=== PATIENT | female | born 1990 | race Caucasian/White ===

== ENCOUNTER → 2022-07-20 | Outpatient (CLI) | payer MEDICAID, SELFPAY ==
[2022-07-20 08:19] LABS: Absolute Lymphocyte Count 2.53 X10^3/uL (0.83-4.51); Absolute Neutrophil Count 4.1 X10^3/uL (2.0-7.7); Basophil% 1.3 % (0-1); Hematocrit 38.7 % (37-47); Hemoglobin 13.1 g/dL (12.0-15.0); Lymphocyte # 2.53 X10^3/ul (0.83-4.51); Lymphocyte % 33.6 % (19-41); Mean Corp Hgb Conc 33.9 g/dL (32-36); Mean Corpuscular Hgb 32.3 pg (27.0-32.0); Mean Corpuscular Volume 95.3 fL (81-99); Mean Platelet Vol. 10.1 fl (6.2-12.0); Monocyte# 0.49 X10^3/uL; Monocyte% 6.5 % (0-10); NRBC Flagged by Analyzer 0 % (0-5); Neutrophil % 54.3 % (47-70); Platelet Count 257 K/mm3 (150-450); RBC Distribution Width CV 13.3 % (11.6-14.6); Red Blood Count 4.06 M/mm3 (4.2-5.4); White Blood Count 7.5 K/mm3 (4.4-11.0)
[2022-07-20 09:44] LABS: ALB/GLOB Ratio 0.9 RATIO (0.9-2.4); AST(SGOT) 61 U/L (15-37); Alanine Aminotransfer ALT/SGPT 115 U/L (13-56); Albumin, Serum 2.9 g/dL (3.2-5.0); Alkaline Phosphatase 155 U/L (45-117); Anion Gap 4 (5-15); BUN 7 mg/dL (7-18); BUN/Creat Ratio 9.2 RATIO (10-20); Calcium,Total 8.4 mg/dL (8.5-10.1); Chloride 105 mmol/L (98-107); Creatinine, Serum 0.76 mg/dL (0.55-1.02); EST Glomerular Filtration Rate 92 mL/min (>60); Est Glom Filt Rate - Afr Amer 111 mL/min (>60); Free T3 < 0.5 pg/mL (2.18-3.98); Globulin 3.3 g/dL (2.2-4.2); Glucose 79 mg/dL (74-106); Iron 128 ug/dL (50-170); Protein, Total 6.2 g/dL (6.4-8.2); Sodium Level 139 mmol/L (136-145); T4 Free Direct 0.12 ng/dL (0.76-1.46)
[2022-07-22 10:32] LABS: Vitamin B12 > 2000 pg/mL (211-911); Vitamin D,25 Hydroxy 17.4 ng/mL
== END | disposition home or self-care (01) ==
PROVIDERS: PCP Family Medicine; Referring Provider Family Medicine; Visit Provider Family Medicine
DX: E06.3 Autoimmune thyroiditis (principal); R53.83 Other fatigue; E55.9 Vitamin D deficiency, unspecified
CPT/HCPCS: 36415; 80053; 82306; 82607; 83540; 84439; 84443; 84481; 85025

== ENCOUNTER → 2022-08-01 | Outpatient (CLI) | payer MEDICAID, SELFPAY ==
[2022-08-01 12:45] LABS: T3 Total - Triiodothyronine 0.11 ng/mL (0.6-1.81)
[2022-08-01 12:49] LABS: ALB/GLOB Ratio 0.8 RATIO (0.9-2.4); AST(SGOT) 89 U/L (15-37); Alanine Aminotransfer ALT/SGPT 158 U/L (13-56); Albumin, Serum 2.5 g/dL (3.2-5.0); Alkaline Phosphatase 146 U/L (45-117); Anion Gap 5 (5-15); BUN 9 mg/dL (7-18); BUN/Creat Ratio 12.9 RATIO (10-20); Calcium,Total 7.6 mg/dL (8.5-10.1); Chloride 109 mmol/L (98-107); EST Glomerular Filtration Rate 102 mL/min (>60); Est Glom Filt Rate - Afr Amer 123 mL/min (>60); Free T3 0.6 pg/mL (2.18-3.98); Globulin 3.1 g/dL (2.2-4.2); Glucose 85 mg/dL (74-106); Lipase 14 U/L (73-393); Potassium 3.8 mmol/L (3.5-5.1); Prealbumin 7.9 mg/dL (20.0-40.0); Protein, Total 5.6 g/dL (6.4-8.2); Sodium Level 141 mmol/L (136-145); T4 Free Direct 0.13 ng/dL (0.76-1.46); T4 Total, Thyroxin 0.9 ug/dL (4.8-13.9)
[2022-08-02 16:09] LABS: Endomysial Antibody IgA Positive (Negative)
[2022-08-02 18:25] LABS: ANTINUCLEAR ANTIBODIES DIRECT Negative (Negative)
[2022-08-02 18:34] LABS: Immunoglobulin A 309 mg/dL (87-352); t-Transglutaminase IgA >100 U/mL (0-3)
== END | disposition home or self-care (01) ==
LOC: BFHLAB 10:58
PROVIDERS: PCP Family Medicine; Visit Provider Family Medicine
DX: R19.7 Diarrhea, unspecified (principal); E06.3 Autoimmune thyroiditis; R21 Rash and other nonspecific skin eruption; R53.83 Other fatigue
CPT/HCPCS: 36415; 80053; 82533; 82784; 83516; 83690; 84134; 84436; 84439; 84480; 84481; 86038; 86225; 86235; 86255

== ENCOUNTER → 2022-09-09 | Outpatient (CLI) | payer MEDICAID, SELFPAY ==
--- NOTE | 2022-09-09 10:23 | US_ITS ---
STUDY: ABDOMINAL ULTRASOUND - RIGHT UPPER QUADRANT REASON FOR VISIT: Female, 32 years old ABDOMINAL BLOATING/CHRONIC DIARRHEA MALNUTRITION TECHNIQUE: Ultrasound evaluation of the right upper quadrant was performed with real-time and static jaimes-scale imaging. TECHNICAL QUALITY: Adequate. COMPARISON: None. FINDINGS: Liver: The liver measures 21.4 cm. Mild increased echogenicity of the liver parenchyma due to fatty infiltration. The bile ducts are within normal limits. There is hepatic color flow. The direction of portal flow is hepatopetal. 1.9 x 2.2 x 1.6 cm hepatic cyst. Gallbladder: Postsurgical absence. Common Bile Duct (C.B.D.): The common bile duct measures 2 mm. Pancreas: Normal size of the head, body and tail of the pancreas. There is normal echogenicity of the pancreas. There is no demonstrated pancreatic mass or cyst. . Pancreatic duct is not dilated. Right Kidney: Normal size of the right kidney. The right kidney measures 10.4 x 5.2 x 4.1 cm. Normal renal cortex. The right cortex measures 0.8 cm. There is no demonstrated renal mass or cyst. There is no right hydronephrosis. US/Abdomen Limited IMPRESSION: 1. Mild hepatomegaly with hepatic steatosis. 2. 1.9 x 2.2 x 1.6 cm hepatic cyst. Electronically Signed: En Obrien MD at 11:05 EST ,
== END | disposition home or self-care (01) ==
LOC: US 10:21
PROVIDERS: PCP Family Medicine; Visit Provider Family Medicine
DX: R14.0 Abdominal distension (gaseous) (principal); K52.9 Noninfective gastroenteritis and colitis, unspecified; Z85.07 Personal history of malignant neoplasm of pancreas
CPT/HCPCS: 76705

== ENCOUNTER → 2022-09-10 | Outpatient (CLI) | payer MEDICAID, SELFPAY ==
[2022-09-10 15:12] LABS: Absolute Lymphocyte Count 1.63 X10^3/uL (0.83-4.51); Absolute Neutrophil Count 6.9 X10^3/uL (2.0-7.7); Eosinophil# 0.75 X10^3/uL; Eosinophils% 7.4 % (0-5); Hematocrit 37.1 % (37-47); Hemoglobin 11.7 g/dL (12.0-15.0); Lymphocyte # 1.63 X10^3/ul (0.83-4.51); Mean Corp Hgb Conc 31.5 g/dL (32-36); Mean Corpuscular Hgb 32.4 pg (27.0-32.0); Mean Corpuscular Volume 102.8 fL (81-99); Monocyte# 0.73 X10^3/uL; Monocyte% 7.2 % (0-10); NRBC Flagged by Analyzer 0 % (0-5); Neutrophil # 6.89 X10^3/uL (2.7-7.7); Neutrophil % 67.6 % (47-70); Platelet Count 252 K/mm3 (150-450); RBC Distribution Width SD 60.3 fl (35.1-43.9); Red Blood Count 3.61 M/mm3 (4.2-5.4); White Blood Count 10.2 K/mm3 (4.4-11.0)
[2022-09-10 15:29] LABS: T3 Total - Triiodothyronine 0.66 ng/mL (0.6-1.81)
[2022-09-10 16:48] LABS: Free T3 1.5 pg/mL (2.18-3.98); Lipase 31 U/L (73-393); T4 Total, Thyroxin 3.7 ug/dL (4.8-13.9)
[2022-09-12 21:58] LABS: Carbohydrate AG 19-9 64 U/mL (0-35)
== END | disposition home or self-care (01) ==
LOC: BFHLAB 11:57
PROVIDERS: PCP Family Medicine; Visit Provider Family Medicine
DX: E06.3 Autoimmune thyroiditis (principal); E46 Unspecified protein-calorie malnutrition; D64.9 Anemia, unspecified; Z85.07 Personal history of malignant neoplasm of pancreas
CPT/HCPCS: 36415; 83690; 84436; 84439; 84443; 84480; 84481; 85025; 86301

== ENCOUNTER → 2022-10-02 | Outpatient (CLI) | payer MEDICAID, SELFPAY ==
[2022-10-02 12:34] LABS: Absolute Lymphocyte Count 1.58 X10^3/uL (0.83-4.51); Absolute Neutrophil Count 2.6 X10^3/uL (2.0-7.7); Basophil# 0.05 X10^3/uL; Eosinophil# 0.55 X10^3/uL; Eosinophils% 10.5 % (0-5); Hematocrit 38.3 % (37-47); Hemoglobin 12.4 g/dL (12.0-15.0); Lymphocyte # 1.58 X10^3/ul (0.83-4.51); Lymphocyte % 30.2 % (19-41); Mean Corp Hgb Conc 32.4 g/dL (32-36); Mean Corpuscular Hgb 32.9 pg (27.0-32.0); Mean Corpuscular Volume 101.6 fL (81-99); Mean Platelet Vol. 10.1 fl (6.2-12.0); Monocyte# 0.45 X10^3/uL; Monocyte% 8.6 % (0-10); NRBC Flagged by Analyzer 0 % (0-5); Neutrophil # 2.59 X10^3/uL (2.7-7.7); Neutrophil % 49.3 % (47-70); Platelet Count 227 K/mm3 (150-450); RBC Distribution Width CV 13.9 % (11.6-14.6); RBC Distribution Width SD 52.4 fl (35.1-43.9); Red Blood Count 3.77 M/mm3 (4.2-5.4); T3 Total - Triiodothyronine 1.12 ng/mL (0.6-1.81); White Blood Count 5.2 K/mm3 (4.4-11.0)
[2022-10-02 12:42] LABS: ALB/GLOB Ratio 1.1 RATIO (0.9-2.4); AST(SGOT) 73 U/L (15-37); Alanine Aminotransfer ALT/SGPT 140 U/L (13-56); Albumin, Serum 3.7 g/dL (3.2-5.0); Alkaline Phosphatase 129 U/L (45-117); Anion Gap 5 (5-15); BUN 10 mg/dL (7-18); Calcium,Total 8.7 mg/dL (8.5-10.1); Chloride 107 mmol/L (98-107); EST Glomerular Filtration Rate 150 mL/min (>60); Est Glom Filt Rate - Afr Amer 182 mL/min (>60); Free T3 2.6 pg/mL (2.18-3.98); Globulin 3.5 g/dL (2.2-4.2); Glucose 81 mg/dL (74-106); Potassium 3.8 mmol/L (3.5-5.1); Protein, Total 7.2 g/dL (6.4-8.2); Sodium Level 141 mmol/L (136-145); T4 Free Direct 0.43 ng/dL (0.76-1.46); T4 Total, Thyroxin 3.8 ug/dL (4.8-13.9)
== END | disposition home or self-care (01) ==
LOC: BFHLAB 08:43
PROVIDERS: PCP Family Medicine; Visit Provider Family Medicine
DX: E06.3 Autoimmune thyroiditis (principal); E46 Unspecified protein-calorie malnutrition; D64.9 Anemia, unspecified
CPT/HCPCS: 36415; 80053; 84436; 84439; 84443; 84480; 84481; 85025

== ENCOUNTER → 2022-11-21 | Outpatient (CLI) | payer MEDICAID, SELFPAY ==
[2022-11-21 12:34] LABS: Absolute Lymphocyte Count 1.57 X10^3/uL (0.83-4.51); Absolute Neutrophil Count 2.7 X10^3/uL (2.0-7.7); Basophil# 0.04 X10^3/uL; Basophil% 0.8 % (0-1); Eosinophils% 9.5 % (0-5); Hematocrit 38.9 % (37-47); Hemoglobin 12.8 g/dL (12.0-15.0); Lymphocyte # 1.57 X10^3/ul (0.83-4.51); Lymphocyte % 29.7 % (19-41); Mean Corp Hgb Conc 32.9 g/dL (32-36); Mean Corpuscular Hgb 31.5 pg (27.0-32.0); Mean Corpuscular Volume 95.8 fL (81-99); Mean Platelet Vol. 9.8 fl (6.2-12.0); Monocyte# 0.48 X10^3/uL; Monocyte% 9.1 % (0-10); NRBC Flagged by Analyzer 0 % (0-5); Neutrophil # 2.68 X10^3/uL (2.7-7.7); Neutrophil % 50.7 % (47-70); Platelet Count 186 K/mm3 (150-450); RBC Distribution Width CV 11.7 % (11.6-14.6); RBC Distribution Width SD 41.1 fl (35.1-43.9); Red Blood Count 4.06 M/mm3 (4.2-5.4); White Blood Count 5.3 K/mm3 (4.4-11.0)
[2022-11-21 13:24] LABS: ALB/GLOB Ratio 1.3 RATIO (0.9-2.4); AST(SGOT) 60 U/L (15-37); Alanine Aminotransfer ALT/SGPT 142 U/L (13-56); Albumin, Serum 3.8 g/dL (3.2-5.0); Alkaline Phosphatase 90 U/L (45-117); Anion Gap 6 (5-15); BUN 11 mg/dL (7-18); BUN/Creat Ratio 24.8 RATIO (10-20); Calcium,Total 9.1 mg/dL (8.5-10.1); Chloride 107 mmol/L (98-107); Creatinine, Serum 0.44 mg/dL (0.55-1.02); EST Glomerular Filtration Rate 172 mL/min (>60); Est Glom Filt Rate - Afr Amer 208 mL/min (>60); Free T3 4.7 pg/mL (2.18-3.98); Glucose 94 mg/dL (74-106); Potassium 4.1 mmol/L (3.5-5.1); Protein, Total 6.8 g/dL (6.4-8.2); Sodium Level 141 mmol/L (136-145); T4 Free Direct 0.69 ng/dL (0.76-1.46); Thyroid Stim Hormone (TSH) 1.25 uIU/mL (0.358-3.74)
== END | disposition home or self-care (01) ==
LOC: BFHLAB 09:28
PROVIDERS: PCP Family Medicine; Referring Provider Family Medicine; Visit Provider Family Medicine
DX: E06.3 Autoimmune thyroiditis (principal); E46 Unspecified protein-calorie malnutrition
CPT/HCPCS: 36415; 80053; 84439; 84443; 84481; 85025

== ENCOUNTER → 2023-01-13 | Outpatient (CLI) | payer MEDICAID, SELFPAY ==
[2023-01-13 13:27] LABS: AST(SGOT) 37 U/L (15-37); Alanine Aminotransfer ALT/SGPT 84 U/L (13-56); Albumin, Serum 3.9 g/dL (3.2-5.0); Alkaline Phosphatase 88 U/L (45-117); Amylase 26 U/L (25-115); Bilirubin, Direct 0.11 mg/dL (0.00-0.30); Free T3 3.1 pg/mL (2.18-3.98); Globulin 3.5 g/dL (2.2-4.2); Lipase < 10 U/L (13-75); Protein, Total 7.4 g/dL (6.4-8.2); T4 Free Direct 0.57 ng/dL (0.76-1.46); Thyroid Stim Hormone (TSH) 4.15 uIU/mL (0.358-3.74)
[2023-01-14 04:07] LABS: Carbohydrate AG 19-9 15 U/mL (0-35)
== END | disposition home or self-care (01) ==
LOC: BFHLAB 09:06
PROVIDERS: PCP Family Medicine; Referring Provider Family Medicine; Visit Provider Family Medicine
DX: E06.3 Autoimmune thyroiditis (principal); R74.8 Abnormal levels of other serum enzymes; K86.89 Other specified diseases of pancreas; Z85.07 Personal history of malignant neoplasm of pancreas
CPT/HCPCS: 36415; 80076; 82150; 83690; 84439; 84443; 84481; 86301

== ENCOUNTER → 2023-05-16 | Outpatient (CLI) | payer MEDICAID, SELFPAY ==
[2023-05-16 15:45] LABS: AST(SGOT) 27 U/L (15-37); Alanine Aminotransfer ALT/SGPT 75 U/L (13-56); Albumin, Serum 3.8 g/dL (3.2-5.0); Alkaline Phosphatase 75 U/L (45-117); Bilirubin, Direct 0.14 mg/dL (0.00-0.30); Free T3 4.1 pg/mL (2.18-3.98); Globulin 3.3 g/dL (2.2-4.2); Protein, Total 7.1 g/dL (6.4-8.2); T4 Free Direct 0.88 ng/dL (0.76-1.46); Thyroid Stim Hormone (TSH) 0.03 uIU/mL (0.358-3.74)
[2023-05-19 14:08] LABS: Endomysial Antibody IgA Positive (Negative); Immunoglobulin A 120 mg/dL (87-352); t-Transglutaminase IgA 8 U/mL (0-3)
== END | disposition home or self-care (01) ==
LOC: BFHLAB 13:20
PROVIDERS: PCP Family Medicine; Referring Provider Family Medicine; Visit Provider Family Medicine
DX: K90.0 Celiac disease (principal); E06.3 Autoimmune thyroiditis
CPT/HCPCS: 36415; 80076; 82784; 83516; 84439; 84443; 84481; 86255

== ENCOUNTER → 2023-09-24 | Outpatient (CLI) | payer MEDICAID, SELFPAY ==
--- OUTSIDE RECORDS SUMMARY | 2023-09-24 06:02 | XMS RPT_ITS | CCD ---
Author Name Unknown Address [address] [place] [address] Organization [facility] Care Team Providers Care Piping Blocker Name Role Phone Clemencia Mcclain DO Primary Care Provider NONE, NONE Primary Care Unavailable MARY DIAZ, Federico Wheeler Attending Unavailab BELLE Nevarez DO Consulting Unavailable ADRIAN DIAZ, PUMA Wheeler Admitting Unavailable DIAMOND DIAZ, JOS V Consulting Unavailable MARY DIAZ, Federico Wheeler Consulting Unavailab eugenio MURPHY MD, TIKI Walter Consulting Unava iljason JAMES [id number], KIMI Wheeler Consulting Unavailable PUMA CAMPBELL MD Consulting Unavailable NONE, NONE Consulting Unavailable NONE, NONE Primary Care Unavailable Johny Clemencia BUI Primary Care Provider DAVID PAGE Referring Unavailable JOHNY, CLEMENCIA A Primary Care Unavailable KAYLEE, DAVID Referring Unavailable JOHNY, CLEMENCIA A Primary Care Unavailable KAYLEE, DAVID Attending Unavailable JOHNY, CLEMENCIA A Primary Care Unavailable JOHNY, CLEMENCIA A Primary Care Unavailable DAVID PAGE Attending Unavailable JOHNY, CLEMENCIA A Primary Care Unavailable KAYLEE, DAVID Referring Unavailable JOHNY, CLEMENCIA A Primary Care Unavailable KAYLEE, DAVID Referring Unavailable JOHNY, CLEMENCIA A Primary Care Unavailable SADJESI, DAVID Referring Unavailable JOHNY, CLEMENCIA A Primary Care Unavailable NONE, NONE Primary Care Unavailable MARY DIAZ, Federico Wheeler Attending Unavailab BELLE Nevarez DO Consulting Unavailable ADRIAN DIAZ, PUMA Wheeler Admitting Unavailable DIAMOND DIAZ, JOS V Consulting Unavailable MARY DIAZ, Federico Wheeler Consulting Unavailab eugenio MURPHY MD, TIKI Walter Consulting Unava ilable ERIKA BUI, KIMI Wheeler Consulting Gabrielavai soila CAMPBELL MD, PUMA Wheeler Consulting Unavailable NONE, NONE Consulting Unavailable JOHNY D~[id number], JOHNY KHANNA Admitting Unavailable HAYWARD D.O., DANII Caballero Consulting Unavaila ble JOHNY D~[id number], JOHNY KHANNA Primary Car e Unavailable JOHNY D~[id number], JOHNY KHANNA Attending Unavailable HAYWARD D.O., DANII Caballero Consulting Unavaila ble JOHNY D, CLEMENCIA Consulting Unavailable JOHNY D, CLEMENCIA Consulting Unavailable JOHNY D~[id number], JOHNY KHANNA Primary Car e Unavailable HOSUER DO~[id number], HOUSER VARUN S Admitting Unavailable HOUSER DO~[id number], MIK BOND S Attending Unavailable HOUSER DO, VARUN S Consulting Unavailable HOUSER DO, VARUN S Consulting Unavailable GREGORIO DIAZ, DR PRITESH Braxton Consulting Unavail jason PERKINS MD, DR PRITESH Braxton Consulting Unavail able JOHNY D, CLEMENCIA Consulting Unavailable JOHNY D, CLEMENCIA Consulting Unavailable JOHNY D, CLEMENCIA Consulting Unavailable JOHNY D~[id number], JOHNY KHANNA Attending Unavailable JOHNY D~[id number], JOHNY KHANNA Admitting Unavailable JOHNY D~[id number], JOHNY KHANNA Primary Car e Unavailable JOHNY D, CLEMENCIA Consulting Unavailable JOHNY D, CLEMENCIA Consulting Unavailable JOHNY D~[id number], JOHNY KHANNA Attending Unavailable JOHNY D~[id number], JOHNY KHANNA Admitting Unavailable JOHNY D~[id number], JOHNY KHANNA Primary Car e Unavailable JOHNY D, CLEMENCIA Consulting Unavailable Allergies Allergy Classification Reported Allergen(s) Allergy Type Date of Onset Reaction(s) Facility (2 sources) Vancomycin Drug Allergy 09-14-2022 [facility] Repository (2 sources) Pork/Porcine Product Derivatives; Translations: [Pork/Porcine Product Derivatives] Food allergy (disorder) [facility] Medications Completed/Discontinued Medications Medication Drug Class(es) Dates Sig (Normalized) Sig (Original) amylase 497011 unt / lipase 32461 unt / protease [id number] unt delayed release oral capsule (7 sources) Start: 01-06-2023 End: 02-12-2024 take 2 capsules by mouth three times daily at mealtime [id number] lase (CREON) 36,000-114,000- 180,000 unit delayed release capsule Take 2 capsules by mouth three times daily with meals. 540 capsule 3 01/06/2023 02/12/2023 Discontinued Problems Active Problems Problem Classification Problem Date Documented Date Episodic/Chronic Cancer of pancreas (13 sources) Malignant tumor of head of pancreas; Translations: [Malignant neoplasm of head of pancreas] Onset: 04-16-2022 04-16-2022 Chronic Esophageal disorders (5 sources) Gastroesophageal reflux disease; Translations: [Gastro-esophageal reflux disease without esophagitis] Onset: 01-19-2023 Chronic Nonmalignant breast conditions (3 sources) Mastodynia; Translations: [MASTODYNIA] Onset: 08-19-2023 Episodic Other liver diseases (1 source) ALT (SGPT) level raised; Translations: [Elevated alanine aminotransferase (ALT) level] 05-16-2023 Episodic Other liver diseases (2 sources) Abnormal levels of other serum enzymes; Translations: [Elevated liver enzymes] Onset: 01-19-2023 Episodic Other nutritional; endocrine; and metabolic disorders (2 sources) Enzyme level - finding; 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, unspecified] Chronic Residual codes; unclassified (1 source) Acquired partial absence of pancreas; Translations: [ACQUIRED PARTIAL ABSENCE PANCREAS] Onset: 09-24-2022 Chronic Thyroid disorders (4 sources) Autoimmune thyroiditis; Translations: [Hypothyroidism, unspecified] Onset: 09-24-2022 Chronic Unclassified (1 source) CONTACT W/AND (SUSP) EXPOS COVID-19; Translations: [CONTACT W/AND (SUSP) EXPOS COVID-19] Onset: 09-24-2022 Past or Other Problems Problem Classification Problem Date Documented Da te Episodic/Chronic Bacterial infection; unspecified site (1 source) Other specified bacterial agents as the cause of diseases classified elsewhere; Translations: [OTH SPEC BACTERIAL DZ CLASS ELSW] Onset: 09-24-2022 Episodic Cancer of other GI organs; peritoneum (1 source) Personal history of malignant neoplasm of pancreas; Translations: [PERSONAL HX MALIG NEOPLASM PANCREAS] Onset: 05-08-2023 Episodic Complications of surgical procedures or medical care (1 source) Bloodstream infection due to central venous catheter, initial encounter; Translations: [BLOODSTREAM INF D/T CVC INITIAL] Onset: 09-24-2022 Episodic E Codes: Adverse effects of medical care (1 source) Other medical procedures as the cause of abnormal reaction of the patient, or of later complication, without mention of misadventure at the time of the procedure; Translations: [OTH MED PROC ABNORM RXN/LTR COMP] Onset: 09-24-2022 Episodic Fever of unknown origin (2 sources) Fever, unspecified; Translations: [FEVER UNSPECIFIED] Onset: 09-14-2022 Episodic Other disorders of stomach and duodenum (5 sources) Nonulcer dyspepsia; Translations: [Functional dyspepsia] Onset: 01-19-2023 Episodic Other liver diseases (8 sources) Elevated liver enzymes level; Translations: [Abnormal levels of other serum enzymes] Onset: 01-19-2023 Episodic Other nervous system disorders (2 sources) Other disturbances of skin sensation; Translations: [OTHER DISTURBANCES SKIN SENSATION] Onset: 05-05-2023 Episodic Other nutritional; endocrine; and metabolic disorders (1 source) Adult failure to thrive; Translations: [ADULT FAILURE TO THRIVE] Onset: 09-24-2022 Episodic Other screening for suspected conditions (not mental disorders or infectious disease) (3 sources) Protein level - finding; Translations: [Other specified abnormal findings of blood chemistry] Onset: 10-02-2022 Episodic Pleurisy; pneumothorax; pulmonary collapse (1 source) Pleurisy; Translations: [PLEURISY] Onset: 05-08-2023 Episodic Residual codes; unclassified (1 source) Body mass index (BMI) 21.0-21.9, adult; Translations: [BODY MASS INDEX BMI 21.0-21.9 ADULT] Onset: 09-24-2022 Episodic Results Test Name Value Interpretation Reference Range Facil ity Vital Signs Date Time Vital Sign Value Performing Clinician Jeanmarie velazquez 07-08-2022 12:52-0500 Body weight 54.88 kg David Page MD Work Phone: [facility] 07-08-2022 12:52-0500 Diastolic blood pressure 71 mm[Hg] David Page MD Work Phone: [facility] 07-08-2022 12:52-0500 Heart rate 67 /min David Page MD Work Phone: [facility] 07-08-2022 12:52-0500 Respiratory rate 16 /min David Page MD Work Phone: [facility] 07-08-2022 12:52-0500 Systolic blood pressure 105 mm[Hg] David Page MD Work Phone: [facility] Encounters Encounter Date Encounter Type Care Provider Facility Start: 08-19-2023 End: 08-20-2023 ambulatory JOHNY Teran~[id number] Facility:[facility] Start: 08-01-2023 End: 08-02-2023 ambulatory CLEMENCIA Teran Facility:[facility] Start: 05-16-2023 End: 05-17-2023 ambulatory DAVID KAYLEE Facility:[facility] Start: 05-16-2023 Telephone encounter David braxton MD Work Phone: Gastroenterology Procedures Date Procedure Procedure Detail Performing Clinician Start: 02-11-2023 Ct abdomen & pelvis w/contrast material David Page MD Work Phone: Laboratory test resu lt abnormal High serum transferrin saturation David Page MD Work Phone: Plan of Treatment Date Care Activity Detail Author Start: 09-01-2023 End: 11-01-2023 Comprehensive metabolic 2000 panel - Serum or Plasma COMP METABOLIC PANEL Lab Routine Elevated alanine aminotransferase (ALT) level Expected: 09/01/2023, Expires: 11/01/2023 [facility] Work Phone: Payers Date Payer Category Payer Private Health Insurance [id number] 2019 Medicaid MEDICAID [facility] MEDICAID [id number] 2019-Present [phone] [address] [place] [address] Medicaid [id number] 2019 Medicaid [id number] 1988 Unknown [id number] 1988 Unknown [id number] 1988 Unknown [id number] 1988 Unknown [id number] 1988 Unknown [id number] 1988 Unknown [id number] 1959 Medicaid [id number] Social History Date Type Detail Facility Tobacco smoking stat [facility] Tobacco smoking consumption unknown [facility] Start: 1990 Sex Assigned At Not on file [facility] Start: 03-24-2022 End: 07-08-2022 Exposure to SARS-CoV-2 (event) Not sure [facility] Start: 01-06-2023 History of Social function [facility] Start: 01-06-2023 Area Deprivation Index [facility] National Score (1-10 0), lower number is lower risk 55 [facility] Clinical Notes 04-04-2022 to 05-21-2023 Telephone Encounter - Michelle Rodas RN - 05/21/2023 11:18 AM EDTTelephone Encounter - David Page MD - 05/19/2023 1:34 PM EDTTelephone Encounter - Michelle Rodas RN - 05/19/2023 1:10 PM EDT Note Date & Type Note Facility 05-21-2023 Miscellaneous Notes Spoke with pt. Advised to establish care within the [facility] system with oncologist to determine how often scans should be done. Pt states understanding and agrees with plan. Pt will get blood work in September Gastroenterologists do not typically make recommendations regarding surveillance scans for pancreatic cancer following surgery. I am reluctant to do so being that all of her care was provided in [place] and I have limited access to her prior treatment plan. She should establish care with an oncologist in the [facility] system for future surveillance. However, I am more than happy continue to manage her elevated LFTs and acid-related symptoms. Spoke with pt. Advised of results and will get repeat blood work Dr Page Pt is asking if she still needs to have CT pancreas every 6 months? Michelle 02-11-2023 CT IMPRESSION: Status post Whipple procedure with unremarkable appearance of the remaining pancreatic body and tail. No evidence for metastatic disease. Stable simple attenuating cyst in the left hepatic lobe. 01-06-2023 ASSESSMENT/PLAN: Vinny Taveras is a 32 year old female with a history of pancreatic cancer (s/p pylorus-preserving Whipple with cholecystectomy on 07/10/21 in [place], in remission), anemia, hypothyroidism, cholecystectomy and migraine headaches who presents to the GI clinic for follow up of GERD, non-ulcer dyspepsia and elevated liver enzymes. 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 She is maintaining her weight. Latest MRI/MRCP shows no evidence of recurrent disease in the abdomen/pelv. Post-op diarrhea resolved on Creon --Surveillance CT abd/pelv next month --Continue low fat diet --Continue Creon 2 caps with meals TID --Patient wishes to continue following up in [place] for her oncologic treatment. 4) GERD 5) Non-ulcer dyspepsia Symptoms are largely controlled on omeprazole 40 mg/day, which she takes 4-5 days/week. H. Pylori infection was ruled out. EGD (12/2021) was reportedly unremarkable. --Continue omeprazole 40 mg/day. Avoid taking within 3 hours of thyroid medication --Healthy anti-reflux lifestyle habits reinforced. 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 Aminotransferases and AlkPhos have improved mildly since Oct (AP 124 > 87, AST 64 > 34, ALT 106 > 80). CT scan from 11/2021 is suggestive of hepatic steatosis. No significant alcohol use history. Etiology includes NAFLD and TPN-related liver injury (last used TPN in 08/2022). Chronic liver disease workup was unremarkable. --Repeat CMP in 3 months --Liver biopsy may be warranted if liver enzymes do not continue to improve, contingent on these test results Michelle, please call Vinny and let her know that her liver enzymes, although not back to normal, continue to look better. I've ordered repeat blood work for her to get done in Sep to check these. documented in this encounter [facility] 02-12-2023 Miscellaneous Notes Orders signed. Thank you Call placed to patient, discussed CT scan. She is aware. Recall already scheduled for notification Pt is also asking if her medication for Creon and Prilosec can be changed to [facility] due to challenges getting to the pharamcy. I changed orders to correct pharmacy, please review and sign. Zulema Loaiza RN Zulema, can you call Vinny and let her know that her CT scan looks good? There is no evidence of recurrent pancreatic cancer. Everything appears stable. documented in this encounter [facility] 02-11-2023 Note HNO ID: [id number] Author: RT Mehran(R) Service: ? Author Type: [employer] Type: Progress Notes Filed: 02/11/2023 1:24 PM Note Text: Radiology Service Progress Note DATE OF SERVICE: February 11, 2023 TIME: 1:23 PM PATIENT IDENTITY VERIFICATION COMPLETED USING TWO (2) STANDARD IDENTIFIERS: Name and Date of confirmed by patient verbally. FALL SCREENING: Has the patient had 2 falls in the last year or 1 fall with injury or currently using an Ambulatory Assistive Device (Walker, Cane, Wheelchair, Crutches, etc.)? No PATIENT GENDER DATA: Female. status: : No status: NO. PATIENT RELEVANT IMPLANT DATA REVIEWED: Yes ALLERGIES: Reviewed and unchanged CONTRAST ALLERGY: NO. EXAM: CT -CONTRAST INDUCED NEPHROPATHY RISK FACTORS: Patient age > 60 years CREATININE: Creatinine Date Value Ref Range Status 12/30/2022 0.55 (L) 0.58 - 0.96 mg/dL Final 10/02/2022 0.49 (L) 0.58 - 0.96 mg/dL Final 04/03/2022 0.77 0.58 - 0.96 mg/dL Final Estimated Glomerular Filtration Rate Date Value Ref Range Status 12/30/2022 124 >=60 mL/min/1.73m? Final Comment: Estimated Glomerular Filtration Rate (eGFR) is calculated using the 2020 CKD-EPI creatinine equation. This equation utilizes serum creatinine, sex, and age as parameters. The creatinine assay has traceable calibration to isotope dilution-mass spectrometry. Refer to KDIGO guidelines for clinical interpretation. In patients with unstable renal function, e.g. those with acute kidney injury, the eGFR may not accurately reflect actual GFR. P.O.C.T. RESULTS: POC done: Yes, See Lab Tab February 11, 2023 TREATMENT: N/A PERIPHERAL IV DATA: Ambulatory: A peripheral IV was started in the Left antecubital site with a Angio cath: 22 gauge. RADIOLOGY DEPARTMENT: CT; Exam(s) Completed: Abdomen/Pelvis SIGNATURE: RT Aracelis(R) PATIENT NAME: Vinny Taveras DATE: February 11, 2023 TIME: 1:23 PM [facility] 02-11-2023 History of Presen t illness Narrative Radiology Service Progress Note DATE OF SERVICE: February 11, 2023 TIME: 1:23 PM PATIENT IDENTITY VERIFICATION COMPLETED USING TWO (2) STANDARD IDENTIFIERS: Name and Date of confirmed by patient verbally. FALL SCREENING: Has the patient had 2 falls in the last year or 1 fall with injury or currently using an Ambulatory Assistive Device (Walker, Cane, Wheelchair, Crutches, etc.)? No PATIENT GENDER DATA: Female. status: : No status: NO. PATIENT RELEVANT IMPLANT DATA REVIEWED: Yes ALLERGIES: Reviewed and unchanged CONTRAST ALLERGY: NO. EXAM: CT -CONTRAST INDUCED NEPHROPATHY RISK FACTORS: Patient age > 60 years CREATININE: Creatinine Date Value Ref Range Status 12/30/2022 0.55 (L) 0.58 - 0.96 mg/dL Final 10/02/2022 0.49 (L) 0.58 - 0.96 mg/dL Final 04/03/2022 0.77 0.58 - 0.96 mg/dL Final Estimated Glomerular Filtration Rate Date Value Ref Range Status 12/30/2022 124 >=60 mL/min/1.73m Final Comment: Estimated Glomerular Filtration Rate (eGFR) is calculated using the 2020 CKD-EPI creatinine equation. This equation utilizes serum creatinine, sex, and age as parameters. The creatinine assay has traceable calibration to isotope dilution-mass spectrometry. Refer to KDIGO guidelines for clinical interpretation. In patients with unstable renal function, e.g. those with acute kidney injury, the eGFR may not accurately reflect actual GFR. P.O.C.T. RESULTS: POC done: Yes, See Lab Tab February 11, 2023 TREATMENT: N/A PERIPHERAL IV DATA: Ambulatory: A peripheral IV was started in the Left antecubital site with a Angio cath: 22 gauge. RADIOLOGY DEPARTMENT: CT; Exam(s) Completed: Abdomen/Pelvis SIGNATURE: RT Aracelis(R) PATIENT NAME: Vinny Taveras DATE: February 11, 2023 TIME: 1:23 PM documented in this encounter [facility] 01-09-2023 Miscellaneous Notes Closed, historical. Patients sister calling to ask that we contact Vinny at [phone]. Thank you Outside records and referral received from Dr. Mcclain. As much as possible registered given incomplete waldemar from referring office. Medical records were faxed into [employer] scanned documents. Attempted to call [phone] as listed on waldemar provided from Dr. Mcclain. Female answering phone said that was her home# but she was not there and asked me to call [phone]. Tried to call secondary number but it was a message stating please enter your mailbox number . Unable to reach patient. Desk will attempt once more. Patient needs to call [facility] at [phone] and complete full registration before she can be scheduled. documented in this encounter [facility] 01-01-2023 Miscellaneous Notes Pt has f/u on 01/06/23 Will discuss at visit, ok per Dr. Kaylee Loaiza RN Zulema, can you call Vinny and let her know that her liver enzymes have improved compared to her last lab check 3 months ago? There is still some mild inflammation in the liver. I'd like to repeat these labs in 3 months to ensure that this improvement continues. She has a follow up appointment with me on 01/06/23. documented in this encounter [facility] 10-21-2022 Miscellaneous Notes Spoke with patient regarding no CT needed. She is aware to get blood work done. Follow up as planned Zulema Loaiza RN No need for repeat CT since this was just done. Since resumption of TPN may have affected her liver enzymes, I favor waiting for 3 months off TPN before rechecking. Labs ordered for collection on or shortly after January 13 Spoke with patient, she updated me on events since last office visit. She states in August and September she was required to go back on her TPN. She was not feeling well at all. She had thyroid levels out of control and was low on protein. She stopped the TPN 2 weeks ago. She is feeling much better. She was able to start on Creon, started with /4 and now is up to 6 per day. This is making her feel much better. She has CT f/u in October, she is asking if she needs this still. She was admitted to hospital on 09/14/22 for line infection, had CT done. She is schedule for follow up in December. CT from care everywhere 09/14/22: - Mild interstitial thickenings and geographic groundglass attenuations at the lung bases possible atelectasis or mild edema. Trace bilateral pleural effusions. No basilar consolidation. - The liver is diffusely hypoattenuating and enlarged at 23 cm in greatest longitudinal diameter. Simple cyst at the left lobe near the dome measures 1.6 x 2.0 cm. Small central pneumobilia is present. The gallbladder surgically absent with cholecystectomy clips. Whipple's procedure with partial pancreatectomy postsurgical changes present. Dilatation of the pancreatic duct at the body and tail measures 6 mm possible sequela of chronic pancreatitis. - The spleen and bilateral adrenal glands are unremarkable. - The stomach and small bowel are unremarkable. The appendix is visualized without inflammatory change. The colon is unremarkable. Zulema Loaiza RN Zulema, can you call Vinny and review her lab results? Testing for hemochromatosis is normal. However, her liver enzymes are persistently elevated. These are stable compared to her last lab draw 6 months ago. No longer felt to be due to TPN since she hasn't required this for months. Can you find out whether she is still receiving chemo? If not, when was her last dose? If so, will she be stopping this soon without plans to restart? She may need a liver biopsy depending on the status of her chemo help determine a cause for this persistent inflammation since her lab workup was unremarkable. documented in this encounter [facility] 07-16-2022 Miscellaneous Notes Spoke with patient regarding results. She expressed good understanding. She is aware to get labs after the new year. Encouraged to call with any questions or concerns. Zulema Loaiza RN Zulema, can you call Vinny to let her know that her urine copper study was normal. This means that her liver enzymes are NOT elevated because of a metabolic disease associated with copper transport. She should get lab work done on or shortly after Sep 01 as we discussed in clinic. OK to relay all medical information to her sister / emergency contact if unable to reach her at her listed number on file. documented in this encounter [facility] 07-08-2022 Instructions David Page MD - 07/08/2022 1:21 PM EST Thank you for seeing me in clinic today! I'm glad that you're feeling better! As we discussed, my recommendations are as follows: Continue omeprazole 40 mg every day. Take this 30-60 minutes before dinner on an empty stomach. Please try to adhere to the following lifestyle habits that can help reduce acid reflux symptoms: Avoid trigger foods , or food/drink that tend to precipitate acid reflux symptoms. Common offenders include alcohol, fatty/spicy foods, red sauces (pizza, ketchup, hot sauce), chocolate, caffeinated beverages such as coffee and tea, carbonated beverages and peppermint. Elevate the head of your bed to 45 degrees (or 6 inches above) with a foam wedge or 2-3 pillows, especially if symptoms occur at night or early in the morning Remain upright for at least 3 hours after meals Avoid late night snacking Avoid tight-fitting clothes/garments Make efforts to reduce overall stress and anxiety, if able Avoid/minimize medications like ibuprofen (Motrin, Advil), naproxen (Aleve) and meloxicam (Mobic) since these can worsen acid reflux. Tylenol is a reasonable alternative if needed for pain control purely from an acid reflux standpoint. 3. Please schedule a CT scan of the abdomen to assess your response to pancreatic cancer treatment no earlier than October 2022. 4. Get blood work done shortly after Sep 01 to check your liver enzymes. I will follow up on your pending urine test. Please make a follow up visit with me in 6 months or sooner as needed for any new/worsening gastrointestinal symptoms If you have any questions about the above treatment plan, please do not hesitate to send me a [employer] message or call the [facility] at [phone] to route me a message. documented in this encounter [facility] 07-08-2022 History and physical note FOLLOW UP OFFICE VISIT REASONS FOR FOLLOW UP: GERD Heartburn Abnormal LFTs PATIENT SUMMARY: Vinny Taveras is a 32 year old female with a history of pancreatic cancer (s/p pylorus-preserving Whipple with cholecystectomy on 07/10/21 in [place], currently receiving immunotherapy), anemia and migraine headaches who presents to the GI clinic for follow up. She was last seen in the GI clinic on 04/03/22 for a 4-month history of intermittent heartburn, nausea and generalized weakness. Gastric wall thickening was seen on CT. Follow up EGD in 12/2021 in [place] was normal per patient. Report is not available for review. Abnormal liver enzymes (ALT 206, AST 142) were found on blood work in 10/2021 and slightly improved on repeat check 2 months later (ALT 126, AST 74). Her oncologist was concerned about malnutrition and she was receiving TPN shipped from [place] that she infused at home through a central line once weekly. Follow up MRI/MRCP of the pancreas showed no evidence of recurrent pancreatic cancer. Creon was started to address possible malnutrition from [facility] since she was experiencing some mild diarrhea / steatorrhea. H. Pylori IgG was normal. Omeprazole 40 mg/day was started for suspected GERD and non-ulcer dyspepsia. Chronic liver disease workup was only notable for a low ceruloplasmin. INTERVAL HISTORY: She is feeling much better. Nausea and heartburn are >90% improved since starting omeprazole. She only experiences mild breakthrough after eating fatty foods. She was unable to tolerate Creon due to GI upset, but is no longer having problems with diarrhea. Stools are formed. She lost 3 lbs since her last visit 3 months ago. Appetite is good. She eats 3 meals/day with snacks. She is no longer requiring TPN. Last TPN infusion was 6 weeks ago without plans to continue. She is still traveling to [place] for periodic immunotherapy. She submitted her 24-hr urine copper today to rule out Arias's disease. Past Clinical Work-up: MRCP: 05/02/22: Patient is status post Whipple procedure. The remaining body and tail of the pancreas are without focal enlargement or mass. Pancreatic duct is dilated at 0.7 cm. No pathologic enhancement. The site of anastomosis with the bowel appears grossly intact. A 2 cm cyst is seen within the dome of the liver. No additional or suspicious hepatic lesion The gallbladder is surgically absent. Common duct is normal in caliber. Component Latest Ref Rng & Units 04/03/2022 H. pylori IgG, Qualitative Negative Negative Component Latest Ref Rng & Units 04/03/2022 Iron 41 - 186 ug/dL 94 TIBC 232 - 386 ug/dL 200 (L) Transferrin Saturation 15.0 - 57.0 % 47.0 Alpha 1 Antitryp Serum 90 - 200 mg/dL 136 Alpha 1 Antitryp Phenotype M1M1 Hep B Core Ab, Total Negative Negative Hep B Surface Ag Negative Negative Hep C Antibody IA Negative Negative Hep B Surface Ab (Immunity) >=12.00 mIU/mL <8.00 (L) Ferritin 14.7 - 205.1 ng/mL 1,649.0 (H) VIJAY Negative Negative Smooth Muscle Ab Panel Negative Negative Mitochondrial Ab Panel Negative Negative Ceruloplasmin 16 - 45 mg/dL 9 (L) Hepatitis A IgG Negative Negative Component Latest Ref Rng & Units 04/03/2022 Protein, Total 6.3 - 8.0 g/dL 5.9 (L) Albumin 3.9 - 4.9 g/dL 3.7 (L) Calcium 8.5 - 10.2 mg/dL 8.2 (L) Bilirubin, Total 0.2 - 1.3 mg/dL 0.4 Alkaline Phosphatase 34 - 123 U/L 173 (H) AST 13 - 35 U/L 71 (H) ALT 7 - 38 U/L 101 (H) Glucose 74 - 99 mg/dL 101 (H) BUN 7 - 21 mg/dL 5 (L) Creatinine 0.58 - 0.96 mg/dL 0.77 Sodium 136 - 144 mmol/L 139 Potassium 3.7 - 5.1 mmol/L 3.9 Chloride 97 - 105 mmol/L 104 CO2 22 - 30 mmol/L 28 Anion Gap 9 - 18 mmol/L 7 (L) eGFR >=60 mL/min/1.73m 105 ALLERGIES No Known Allergies PAST MEDICAL HISTORY Diagnosis Date Anemia in other chronic diseases classified elsewhere Malignant neoplasm of other parts of pancreas (HCC) Signet Ring Cell Carcinoma PAST SURGICAL HISTORY Procedure Laterality Date PANCREATECTOMY 2020 REMOVAL GALLBLADDER 2020 No family history on file. Current Outpatient Medications Medication Sig thyroid (ARMOUR THYROID) 120 mg tablet Take 120 mg by mouth once daily. omeprazole (PRILOSEC) 40 mg capsule Take 1 capsule by mouth once daily. Take 30-60 minutes before dinner on an empty stomach. No current facility-administered medications for this visit. I have confirmed and edited, if necessary, the PFSH obtained by others. REVIEW OF SYSTEMS CONSTITUTIONAL: Negative for unintentional weight loss, malaise or fevers HEENT: Negative for frequent/significant headaches, changes in hearing/vision, nose bleeds or other nasal problems RESPIRATORY: Negative for cough, hemoptysis, wheezing or dyspnea CARDIOVASCULAR: Negative for chest pain, palpitations, syncope or lightheadedness GI: See HPI : Negative for dysuria, polyuria, incontinence or hematuria MUSCULOSKELETAL: Negative for arthralgia or myalgia INTEGUMENTARY/SKIN: Negative for rash or skin lesion HEMATOLOGY/LYMPHOLOGY: Negative for prolonged bleeding, easy bruising or swollen nodes ENDOCRINE: Negative for cold/heat intolerance, polydipsia or goiter NEURO: Negative for encephalopathy, tremor or gait abnormality PSYCH: Negative for new changes in mood or affect PHYSICAL EXAM: BP 105/71 (BP Site: Left Arm, BP Position: Sitting, BP Cuff Size: Regular Adult) Pulse 67 Resp 16 Wt 54.9 kg (121 lb) Gen: Comfortable female in NAD Head: Normocephalic, atraumatic Skin: No jaundice, rashes or skin lesions Eyes: Sclera anicteric, conjunctiva pink, no KF rings Neck: No mass or goiter Heart: No sternal heave Lungs: Non-labored breathing Abd: Soft and non-distended Ext: No lower extremity edema, clubbing or cyanosis Neuro: Alert and oriented, no tremor or gross focal motor deficits Psych: Congruent mood and affect, appropriate insight and judgement ASSESSMENT/PLAN: Vinny Taveras is a 32 year old female with a history of pancreatic cancer (s/p pylorus-preserving Whipple with cholecystectomy on 07/10/21 in [place], currently receiving immunotherapy), anemia and migraine headaches who presents to the GI clinic for follow up. 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 No longer requiring TPN. Maintaining her weight. Latest MRI/MRCP shows no evidence of recurrent disease in the abdomen/pelv. Post-op diarrhea has resolved. She could not tolerate Creon. --Surveillance CT abd/pelv in 4 months --Low fat diet --Patient wishes to continue following up in [place] at least until she completes treatment 4) GERD 5) Non-ulcer dyspepsia Heartburn, dyspepsia and nausea are >90% improved on omeprazole 40 mg/day. She underwent EGD in 12/2021 in [place] for gastric wall thickening seen during on her CT 1 month prior. This exam was normal per patient, but report is not available for review. H. Pylori IgG was negative. --Continue omeprazole 40 mg/day. Take before dinner to avoid absorption problems with levothyroxine --Healthy anti-reflux lifestyle habits reinforced. 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 These persistent but were improved on blood work 2 months later (ALT 126, AST 74, AP 138). CT scan from 11/2021 is suggestive of hepatic steatosis. Etiology includes NAFLD, TPN-related injury other metabolic/genetic liver diseases (Arias's, HH). Ceruloplasmin was low. Ferritin and transferrin saturation were high. --Repeat CMP with HFE screen in 2 months --24-hr urine copper --Liver biopsy may be warranted, contingent on these test results Follow up with me in 6 months David Page MD Associate Staff, Department of Gastroenterology and Hepatology [facility] [place] documented in this encounter [facility] 05-29-2022 Miscellaneous Notes Spoke with patient, she states she was having issues with her phone. She was informed of her results from BW and MRI. She was pleased to hear results. She was updated about doing a 24 hour urine specimen. She will try to do this week. She will be going to [place] for 2 weeks next week, she may need to do the urine when she returns. Zulema Loaiza RN Attempt to contact patient again, call cannot be completed. Sister has same number listed. Zulema Loaiza RN I tried to contact patient, attempt x2, phone number listed in encounter and on contact info rings quick busy signal. I will try again. Zulema Loaiza RN Attempted to reach patient again, but call would not go through at this phone number. Attempted to reach patient at her listed number on file, but reached a busy signal on 3 occasions. Will try back again Her MRI is reassuring and shows no evidence of recurrent pancreatic cancer. Her disease appears to be in remission. No suspicious liver abnormalities to explain her elevated liver enzymes. Recent labs show low ceruloplasmin. A 24-hour urine copper study is recommended to rule out Arias's disease. She will have to crab picker this urine collection container at a [facility] lab and ask the lab for instructions about storage, pickup/drop off times. The urine jug may need to be refrigerated. The remainder of her chronic liver disease workup is unremarkable. She should receive the hepatitis B vaccine series since she is not immune to this virus. If her urine copper study is normal, I recommend repeating her liver enzymes and if persistently elevated, going forward with a liver biopsy. Please see message. MRI results: Patient is status post Whipple procedure. The remaining body and tail of the pancreas are without focal enlargement or mass. Pancreatic duct is dilated at 0.7 cm. No pathologic enhancement. The site of anastomosis with the bowel appears grossly intact. The kidneys appear normal. No focal enlargement or mass. A 2 cm cyst is seen within the dome of the liver. No additional or suspicious hepatic lesion The gallbladder is surgically absent. Common duct is normal in caliber. Zulema Loaiza RN Patient identified by name and date. Patient calling for results of her MRI done on 05/02/22. She can be reached at [phone]. KATHIA Roca documented in this encounter [facility] 04-04-2022 Miscellaneous Notes Agree with this. Thank you Spoke with pharmacy Clarified orders. Dr. Page: they wanted specific timing of snack, I advised to use 3 snacks per day. She will take 2 with meals TID and 1 with snack TID, total of 9 per day. They will fill 30 day supply with 5 refills. Zulema Loaiza RN Please review PSR message and advise pharmacy. Angélica Denis MA Good Afternoon, Philly from [facility] in [facility] was calling in regarding the Creon Prescription. They need clarification on the Directions and dosage. Please call [phone] Thank You documented in this encounter [facility] Diagnosis Elevated liver enzymes- Primary Other nonspecific abnormal serum enzyme levels Malignant neoplasm of head of pancreas (HCC) Malignant neoplasm of head of pancreas Elevated ferritin Other abnormal blood chemistry High serum transferrin saturation Low ceruloplasmin level Disorders of copper metabolism Gastroesophageal reflux disease, unspecified whether esophagitis present Non-ulcer dyspepsia Dyspepsia and other specified disorders of function of stomach [facility] Diagnosis Elevated liver enzymes- Primary Other nonspecific abnormal serum enzyme levels [facility] Diagnosis Elevated liver enzymes- Primary Other nonspecific abnormal serum enzyme levels [facility] Diagnosis Elevated alanine aminotransferase (ALT) level- Primary Nonspecific elevation of levels of transaminase or lactic acid dehydrogenase (LDH) [facility] Diagnosis Malignant neoplasm of pancreas, unspecified location of malignancy (HCC) documented in this encounter [facility] Reason for Referral Specialty Diagnoses / Procedures Referred By Andrew lopez Referred To Contact CT IMAGING Diagnoses Malignant neoplasm of head of pancreas (HCC) Procedures CT ABD/PEL W IVCON CT ABD & PELVIS W/[place] [id number] [place] [address] Ct Imaging Referral ID Status Reason Start Date Expiration Date Visits Requested Visits Authorized [id number] Authorized Auto-Generat ed Referral 10/30/2022 08/07/2023 1 1 Specialty Diagnoses / Procedures Referred By Andrew lopez Referred To Contact CT IMAGING Diagnoses Malignant neoplasm of pancreas, unspecified location of malignancy (HCC) Procedures CT ABD/PEL W IVCON CT ABD & PELVIS W/[place] [id number] [place] [address] Ct Imaging [place] [address] Referral ID Status Reason Start Date Expiration Date V isits Requested Visits Authorized [id number] Closed Auto-Generate d Referral 01/30/2023 02/05/2024 1 1 Summary Purpose Family History No Family History Records FoundNo Family History Records FoundNo Family History Records Found Advance Directives No Advanced Directives Records FoundNo Advanced Directives Records FoundNo Advanced Directives Records Found Additional Source Comments Source Comments (unrecognize d section and content) In the event this informatio n is protected by the Federal Confidentiality of Alcohol and Drug Abuse Patient Records regulations: The Federal rules restrict any use of the information to criminally investigate or prosecute any alcohol or drug abuse patient.[facility] the event this information is protected by the Federal Confidentiality of Alcohol and Drug Abuse Patient Records regulations: The Federal rules restrict any use of the information to criminally investigate or prosecute any alcohol or drug abuse patient.[facility] Hospital[facility] the event this information is protected by the Federal Confidentiality of Alcohol and Drug Abuse Patient Records regulations: The Federal rules restrict any use of the information to criminally investigate or prosecute any alcohol or drug abuse patient.[facility] Hospital[facility] the event this information is protected by the Federal Confidentiality of Alcohol and Drug Abuse Patient Records regulations: The Federal rules restrict any use of the information to criminally investigate or prosecute any alcohol or drug abuse patient.[facility] Hospital[facility] the event this information is protected by the Federal Confidentiality of Alcohol and Drug Abuse Patient Records regulations: The Federal rules restrict any use of the information to criminally investigate or prosecute any alcohol or drug abuse patient.[facility] Hospital[facility] the event this information is protected by the Federal Confidentiality of Alcohol and Drug Abuse Patient Records regulations: The Federal rules restrict any use of the information to criminally investigate or prosecute any alcohol or drug abuse patient.[facility] Hospital[facility] the event this information is protected by the Federal Confidentiality of Alcohol and Drug Abuse Patient Records regulations: The Federal rules restrict any use of the information to criminally investigate or prosecute any alcohol or drug abuse patient.[facility] Hospital[facility] the event this information is protected by the Federal Confidentiality of Alcohol and Drug Abuse Patient Records regulations: The Federal rules restrict any use of the information to criminally investigate or prosecute any alcohol or drug abuse patient.[facility] HospitalIn the event this information is protected by the Federal Confidentiality of Alcohol and Drug Abuse Patient Records regulations: The Federal rules restrict any use of the information to criminally investigate or prosecute any alcohol or drug abuse patient.[facility] Hospital[facility] the event this information is protected by the Federal Confidentiality of Alcohol and Drug Abuse Patient Records regulations: The Federal rules restrict any use of the information to criminally investigate or prosecute any alcohol or drug abuse patient.[facility] Hospital[facility] the event this information is protected by the Federal Confidentiality of Alcohol and Drug Abuse Patient Records regulations: The Federal rules restrict any use of the information to criminally investigate or prosecute any alcohol or drug abuse patient.[facility] Reason for Visit (unrecogniz ed section and content) Specialty Diagnoses / Procedures Referred By Andrew lopez Referred To Contact CT IMAGING Diagnoses Malignant neoplasm of pancreas, unspecified location of malignancy (HCC) Procedures CT ABD/PEL W IVCON CT ABD & PELVIS W/[place] [id number] [place] [address] Ct Imaging [place] [address] Referral ID Status Reason Start Date Expiration Date V isits Requested Visits Authorized [id number] Closed Auto-Generate d Referral 01/30/2023 02/05/2024 1 1 Reason Comments Medication Problem Reason Comments Results Results - Mri Reason Comments Results Urine copper Reason Comments Recheck Pancreatic CA Reason Comments Results labs Reason Comments Results Reason Comments Appointment Reason Comments Results CT scan Care Teams (unrecognized sec tion and content) Piping Blocker Relationship Specialty Start Date End Date Clemencia Mcclain DO [address] [place] [address] PCP - General Family Medicine 01/07/22 Piping Blocker Relationship Specialty Start Date End Date Clemencia Mcclain, [address] [place] [address] PCP - General Family Medicine 01/07/22 Piping Blocker Relationship Specialty Start Date End Date Clemencia Mcclain DO [address] [place] [address] PCP - General Family Medicine 01/07/22 Piping Blocker Relationship Specialty Start Date End Date Clemencia Mcclain, [address] [place], [place] [id number] PCP - General Family Medicine 01/07/22 Piping Blocker Relationship Specialty Start Date End Date Clemencia Mcclain DO [address] [place], [place] [id number] PCP - General Family Medicine 01/07/22 Piping Blocker Relationship Specialty Start Date End Date Clemencia Mcclain DO [address] [place] [address] PCP - General Family Medicine 01/07/22 Piping Blocker Relationship Specialty Start Date End Date Clemencia Mcclain DO [address] [place] [address] PCP - General Family Medicine 01/07/22 Piping Blocker Relationship Specialty Start Date End Date Clemencia Mcclain DO [address] [place] [address] PCP - General Family Medicine 01/07/22 Piping Blocker Relationship Specialty Start Date End Date Clemencia Mcclain DO [address] [place] [address] PCP - General Family Medicine 01/07/22 Piping Blocker Relationship Specialty Start Date End Date Clemencia Mcclain DO [address] [address] PCP - General Family Medicine 01/07/22 INFORMATION SOURCE (unrecogn ized section and content) DATE CREATED AUTHOR AUTHOR'S ORGANIZ ATION 05/23/2023 [facility] DATE CREATED AUTHOR AUTHOR'S ORGANIZ ATION 08/22/2023 [facility] FOR RECORDS PERTAINING TO PATIENTS WHO ARE OR HAVE BEEN ENROLLED IN A CHEMICAL DEPENDENCY/SUBSTANCEABUSE PROGRAM, SOME INFORMATION MAY BE OMITTED. This clinical summary was aggregated from multiple sources. Caution should be exercised in using it in the provision of clinical care. This summary normalizes information from multiple sources, and as a consequence, information in this document may materially change the coding, format and clinical context of patient data. In addition, data may be omitted in some cases. CLINICAL DECISIONS SHOULD BE BASED ON THE PRIMARY CLINICAL RECORDS. [facility] provides no warranty or guarantee of the accuracy or completeness of information in this document.
--- NOTE | 2023-09-24 06:03 | CT_ITS ---
INDICATION: HX OF PANCREATIC CANCER EXAMINATION: CT ABDOMEN WITH IV CONTRAST CT Abdomen W/ Contrast Injection TECHNIQUE: Helically acquired images were obtained of the abdomen following IV contrast. A radiation dose optimization technique was used for this scan. IV Contrast dosage and agent: 100 cc of Isovue-300. Oral contrast: None. RADIATION DOSAGE (If Supplied By Facility): CTDIvol = ( 9.67 ) mGy, DLP = ( 218.76 ) mGycm COMPARISON: Abdominal ultrasound of 09/09/2022 FINDINGS: LOWER CHEST: Atelectatic changes in the lung bases. 5 mm pleural-based nodule left lower lobe. No cardiomegaly or pericardial effusion. LIVER: Homogeneous. 2.3 cm simple cyst in the left lobe. GALLBLADDER AND BILIARY TREE: Status post cholecystectomy. No intra- or extrahepatic biliary ductal dilation. PANCREAS: Absent and and proximal body of the pancreas likely resected. Surgical clips in the adjacent retroperitoneum. SPLEEN: Normal size without focal cystic or solid mass. ADRENAL GLANDS: No nodules. KIDNEYS AND URETERS: Normal renal size and position. No hydronephrosis. PERITONEUM: No ascites or free air. No other fluid collection. BOWEL: The appendix is not visualized. Surgical anastomosis sutures in mid small bowel loops anteriorly. No focal inflammatory change. LYMPH NODES: No enlarged mesenteric or retroperitoneal lymph nodes. VESSELS: Aorta is non-dilated. ABDOMINAL WALL: No discrete abdominal wall hernia. BONES: No lytic or blastic abnormality. CT/Abdomen WITH IV Contrast IMPRESSION: 1. Status post resection of the pancreatic head and proximal body. 2. Liver cyst appears to be benign. 3. No focal acute inflammatory process. Electronically Signed: Benji Bose MD at 8:52 EST ,
== END | disposition home or self-care (01) ==
PROVIDERS: PCP Family Medicine; Referring Provider Family Medicine; Visit Provider Family Medicine
DX: Z85.07 Personal history of malignant neoplasm of pancreas (principal)
CPT/HCPCS: 74160; Q9967

== ENCOUNTER → 2023-12-16 | Outpatient (CLI) | payer MEDICAID, SELFPAY ==
[2023-12-16 12:21] LABS: Absolute Lymphocyte Count 2.14 X10^3/uL (0.83-4.51); Absolute Neutrophil Count 4.1 X10^3/uL (2.0-7.7); Basophil# 0.04 X10^3/uL; Basophil% 0.6 % (0-1); Eosinophil# 0.38 X10^3/uL; Eosinophils% 5.2 % (0-5); Hematocrit 40.6 % (37-47); Hemoglobin 13.5 g/dL (12.0-15.0); Lymphocyte # 2.14 X10^3/ul (0.83-4.51); Lymphocyte % 29.5 % (19-41); Mean Corp Hgb Conc 33.3 g/dL (32-36); Mean Corpuscular Hgb 29.8 pg (27.0-32.0); Mean Corpuscular Volume 89.6 fL (81-99); Mean Platelet Vol. 9.8 fl (6.2-12.0); Monocyte# 0.54 X10^3/uL; Monocyte% 7.4 % (0-10); NRBC Flagged by Analyzer 0 % (0-5); Neutrophil # 4.14 X10^3/uL (2.7-7.7); Neutrophil % 57.2 % (47-70); Platelet Count 233 K/mm3 (150-450); RBC Distribution Width CV 12.2 % (11.6-14.6); RBC Distribution Width SD 39.9 fl (35.1-43.9); Red Blood Count 4.53 M/mm3 (4.2-5.4); White Blood Count 7.3 K/mm3 (4.4-11.0)
[2023-12-16 12:35] LABS: Erythrocyte Sedimentation Rate 4 mm/hr (0-30)
[2023-12-16 13:45] LABS: AST(SGOT) 41 U/L (15-37); Alanine Aminotransfer ALT/SGPT 121 U/L (13-56); Albumin, Serum 3.9 g/dL (3.2-5.0); Alkaline Phosphatase 90 U/L (45-117); Bilirubin, Direct 0.17 mg/dL (0.00-0.30); CRP < 2.90 mg/L (0.0-3.0); Ferritin 1000 ng/mL (8-252); Globulin 3.3 g/dL (2.2-4.2); Protein, Total 7.2 g/dL (6.4-8.2); T4 Free Direct 0.55 ng/dL (0.76-1.46); Thyroid Stim Hormone (TSH) 3.41 uIU/mL (0.358-3.74)
== END | disposition home or self-care (01) ==
LOC: BFHLAB 10:39
PROVIDERS: PCP Family Medicine; Referring Provider Family Medicine; Visit Provider Family Medicine
DX: E06.3 Autoimmune thyroiditis (principal); R74.8 Abnormal levels of other serum enzymes; R79.89 Other specified abnormal findings of blood chemistry
CPT/HCPCS: 36415; 80076; 82728; 84439; 84443; 84481; 85025; 85652; 86140

== ENCOUNTER → 2024-08-12 | Outpatient (CLI) | payer MEDICAID, SELFPAY ==
[2024-08-12 18:21] LABS: AST(SGOT) 39 U/L (15-37); Alanine Aminotransfer ALT/SGPT 80 U/L (13-56); Alkaline Phosphatase 81 U/L (45-117); Bilirubin, Direct 0.14 mg/dL (0.00-0.30); Cholesterol 164 mg/dL (200); Globulin 3.4 g/dL (2.2-4.2); High Density Lipoprotein 90 mg/dL; Protein, Total 7.4 g/dL (6.4-8.2); T4 Free Direct 0.68 ng/dL (0.76-1.46); Thyroid Stim Hormone (TSH) 0.661 uIU/mL (0.358-3.740); Triglycerides 51 mg/dL; Very Low Density Lipoprotein 10 mg/dL (5-40)
== END | disposition home or self-care (01) ==
LOC: BFHLAB 14:14
PROVIDERS: PCP Family Medicine; Visit Provider Family Medicine
DX: Z00.00 Encounter for general adult medical examination without abnormal findings (principal); E06.3 Autoimmune thyroiditis; R74.8 Abnormal levels of other serum enzymes
CPT/HCPCS: 36415; 80061; 80076; 84439; 84443; 84481

== ENCOUNTER → 2025-02-24 | Outpatient (CLI) | payer MEDICAID, SELFPAY ==
[2025-02-24 18:26] LABS: AST(SGOT) 36 U/L (<=31); Alanine Aminotransfer ALT/SGPT 68 U/L (<=34); Albumin, Serum 4.4 g/dL (3.5-5.0); Alkaline Phosphatase 88 U/L (35-104); Bilirubin, Direct 0.14 mg/dL (0.00-0.30); Free T3 3.6 pg/mL (2.18-3.98); Globulin 2.7 g/dL (2.2-4.2); Protein, Total 7.1 g/dL (5.9-8.4); Total Bilirubin 0.33 mg/dL (0.00-1.30)
[2025-02-26 04:07] LABS: Carbohydrate AG 19-9 13 U/mL (0-35)
== END | disposition home or self-care (01) ==
PROVIDERS: PCP Family Medicine; Visit Provider Family Medicine
DX: E06.3 Autoimmune thyroiditis (principal); R79.89 Other specified abnormal findings of blood chemistry; Z85.07 Personal history of malignant neoplasm of pancreas
CPT/HCPCS: 36415; 80076; 84439; 84443; 84481; 86301